=== PATIENT | female | born 1955 | race Caucasian/White ===

== ENCOUNTER → 2017-01-18 | Outpatient (CLI) | payer OTHER ==
--- NOTE | ~2017-01-18 | 2DMMODE ---
[facility]valdo [facility] [employer] [place] [address] 2 D/M-MODE ECHOCARDIOGRAM Name: JOSEPHINE LANDA Room #: REG [facility]#: [id number] Admission: 01/18/17 Attend Phys: Alexx Chadwick MD Discharge: Date of : 55 Date of Service: 01/18/17 1119 Report #: [id number] THIS REPORT FOR: //name// APPROVED REPORT Study performed: 01/18/2017 10:27:02 EXAM: Comprehensive 2D, Doppler, and color-flow Echocardiogram Patient Location: Out-Patient Room #: Echo lab Status: routine Other Information Study Quality: Good Indications Palpitations 2D Dimensions RVDd: 27.41 mm LVEF(%): 55.10 (>50%) IVSd: 7.49 (7-11mm) LVOT Diam: 16.83 (18-24mm) LVDd: 49.89 mm PWd: 9.51 (7-11mm) Ascending Ao: 33.27 (22-36mm) LVDs: 35.55 (25-40mm) Aortic Root: 29.14 mm IVC: 14.00 mm Hoyos's LVEF: 55.10 % Volumes Left Atrial Volume (Systole) Single Plane 4CH: 31.88 mL Single Plane 2CH: 43.24 mL LA ESV Index: 25.00 mL/m2 Aortic Valve AoV Peak Mingo.: 1.32 m/s AO Peak Gr.: 6.95 mmHg LVOT Max P.51 mmHg LVOT Max V: 1.06 m/s CHUCKY Vmax: 1.79 cm2 Mitral Valve E/A Ratio: 0.8 MV Decel. Time: 199.76 ms MV E Max Mingo.: 0.64 m/s MV A Mingo.: 0.76 m/s MV PHT: 57.93 ms IVRT: 138.41 ms [facility] [place] [address] 2 D/M-MODE ECHOCARDIOGRAM Name: JOSEPHINE LANDA PAMELA Room #: REG [facility]#: [id number] Admission: 01/18/17 Attend Phys: Alexx Chadwick MD Discharge: Date of : 55 Date of Service: 01/18/17 1119 Report #: [id number] Pulmonary Valve PV Peak Mingo.: 0.77 m/s PV Peak Gr.: 2.40 mmHg Pulmonary Vein P Vein S: 0.44 m/s P Vein A: 0.26 m/s P Vein D: 0.39 m/s P Vein A Dur.: 115.3 msec P Vein S/D Ratio: 1.13 Tricuspid Valve RAP Estimate: 5.00 mmHg Left Ventricle The left ventricle is normal size. There is normal LV segmental wall motion. There is normal left ventricular wall thickness. The left ventricular systolic function is normal. The left ventricular ejection fraction is within the normal range. LVEF is 50-55%. Grade I - abnormal relaxation pattern. Right Ventricle The right ventricle is normal size. The right ventricular systolic function is normal. Atria The left atrium size is normal. The right atrium size is normal. Aortic Valve The aortic valve is normal in structure. No aortic regurgitation is present. There is no aortic valvular stenosis. Mitral Valve The mitral valve is normal in structure. Trace to mild mitral regurgitation. No evidence of mitral valve stenosis. Tricuspid Valve The tricuspid valve is normal in structure. There is no tricuspid valve stenosis. There is no tricuspid valve regurgitation noted. Pulmonic Valve The pulmonary valve is normal in structure. There is no pulmonic valvular stenosis. Trace pulmonic regurgitation. Great Vessels The aortic root is normal in size. IVC is normal in size and [facility] [address] [place] [address] 2 D/M-MODE ECHOCARDIOGRAM Name: JOSEPHINE LANDA Room #: REG CL [facility]#: [id number] Admission: 01/18/17 Attend Phys: Alexx Chadwick MD Discharge: Date of : 55 Date of Service: 01/18/17 1119 Report #: [id number] collapses >50% with inspiration. Pericardium There is no pericardial effusion. <Conclusion> The left ventricle is normal size. The left ventricular systolic function is normal. Grade I - abnormal relaxation pattern. The right ventricle is normal size. The left atrium size is normal. The aortic valve is normal in structure. Trace to mild mitral regurgitation. There is no pericardial effusion. <ELECTRONICALLY SIGNED> By: Alexx Chadwick MD 01/18/17 1119 1119 111 Alexx Chadwick MD /INF
== END ==
LOC: NUC 07:05
DX: I48.91 Unspecified atrial fibrillation (principal)

== ENCOUNTER → 2017-05-09 | Outpatient (CLI) | payer OTHER ==
[2017-05-09 07:50] LABS: HEMATOCRIT 40.3 % (37.0-47.0); HEMOGLOBIN 13.7 gm/dL (12.0-15.0); MCH 31.9 pg (26.0-34.0); MCHC 34.1 g/dL (28.0-37.0); MCV 93.5 fL (80.0-100.0); RBC 4.31 mil/uL (4.20-5.00); RDW 12.7 % (10.5-14.5); WBC 5.1 thou/uL (4.0-11.0)
[2017-05-09 08:14] LABS: CALCIUM 9.3 mg/dL (8.5-10.1); CREATININE 0.9 mg/dL (0.6-1.0); POTASSIUM 4.3 mmol/L (3.5-5.1)
[2017-05-09 08:20] LABS: ALBUMIN 4.2 g/dL (3.4-5.0); TOTAL BILIRUBIN 0.4 mg/dL (<0.1-1.0); TOTAL PROTEIN 7.6 g/dL (6.4-8.2)
== END ==
LOC: CAT 07:06 → LABMALL 07:54
PROVIDERS: Internal Medicine Cardiovascular Disease
DX: I48.91 Unspecified atrial fibrillation (principal)

== ENCOUNTER 2017-05-18 06:28 | Observation (INO) | payer OTHER ==
[~2017-05-18] VITALS: Ht 162.6 cm; Wt 70.3 kg
--- NOTE | ~2017-05-18 | D ---
[facility] [place] [address] DISCHARGE SUMMARY Name: JOSEPHINE LANDA Room #: 209-P [facility] Fabby MAzael#: [id number] Admission: 05/18/17 Attend Phys: Kermit Davis MD Discharge: 05/19/17 Date of : 55 Report #: [id number] THIS REPORT FOR: //name// CC: Lubna Davis DATE OF SERVICE: 05/19/2017 The patient is a 61-year-old female who is status post a cryoablation by Dr. Davis. There was successful isolation of the left common ostium and the right superior and inferior and right middle vein. She is currently in sinus rhythm. She feels well. She is voicing no complaints or pain, no groin issues. She is up and ambulating. She is currently on Lipitor 20, metoprolol 12.5 b.i.d., flecainide 50 b.i.d., Pradaxa 150 b.i.d. She will be discharged on those medications. No lifting for 48 hours. No lying in tub, Jacuzzi or rudolph for 5 days. She has followup scheduled with Dr. Erickson, who is her primary advertising campaign manager, in June with Dr. Davis in July. If she would have any issues such as palpitation, racing heart or if she perceives that there is recurrence of atrial fibrillation, she is to come to the office for an EKG. DISCHARGE DIAGNOSES: 1. Atrial fibrillation, status post successful cryoablation. 2. History of bradycardia. 3. Degenerative joint disease. Thank you for asking us to assist in the care of this patient. <ELECTRONICALLY SIGNED> By: Ever Briones MD, FACC 05/21/17 1646 1028 1103 Ever Briones MD, FACC /nt
--- NOTE | ~2017-05-18 | P ---
[facility] [place] [address] PROCEDURE REPORT Name: JOSEPHINE LANDA Room #: 209-P [facility] Fabby [place]#: [id number] Admission: 05/18/17 Attend Phys: Kermit Davis MD Discharge: 05/19/17 Date of : 55 Report #: [id number] THIS REPORT FOR: //name// CC: Lubna Davis PROCEDURE: AFib ablation. PREOPERATIVE DIAGNOSIS: Paroxysmal atrial fibrillation. POSTOPERATIVE DIAGNOSIS: Paroxysmal atrial fibrillation. HISTORY OF PRESENT ILLNESS: The patient is a 61-year-old with history of recurrent paroxysmal atrial fibrillation who is here for AFib ablation. ANESTHESIA: The patient underwent general anesthesia with no anesthesia related complications. DESCRIPTION OF PROCEDURE: The patient underwent informed consent where we discussed the details of the procedure including the risks, which include, but not limited to bleeding, vascular damage, cardiac perforation as well as stroke or ND. She understood these risks and is willing to proceed. As such, she was brought to the EP laboratory in a fasting and sedated state and prepped and draped in a sterile fashion. I injected lidocaine to the right groin and obtained access to the right femoral vein times 3. I placed an 8-Argentine, 9-Argentine and 7-Argentine short sheath in the right femoral vein using the modified Seldinger technique. Next, under fluoroscopy, I placed a decapolar catheter and an ICE catheter into the right atrium. I had difficulty placing the decapolar catheter into the coronary sinus. I could not get it to sit into the coronary sinus body. It remained into a ventricular branch of the coronary sinus. Eventually, it fell out and I just left it on the right atrium. I then placed the ICE catheter and again her heart was rotated and this made for difficult visualization of the left atrium for most of the procedure, but I could clearly see the left atrial appendage and there was no clot in this and there was a left common ostium and I could make out the right inferior veins. Next, the patient was systemically heparinized and using an SL1 sheath and a Britt needle, I attempted to perform a transseptal. She did have a nice thin interatrial septum. When I came on with the Britt needle, it did not the left atrium as usual, but I was able to advance the dilator slightly into the left atrium and placed a guidewire into the left common vein. However, as I tried to advance the sheath, it would not cross over into the left atrium. My transseptal puncture was somewhat low, so I decided to pull back and repeat another transseptal at a slightly more mid location on the interatrial septum. Again, using the Britt needle and SL1, I was able to pop the dilator into the left atrium and then placed a wire deep into the left common ostium, but despite pushing and turning, I could not advance the sheath. Therefore, I pulled the [facility] [address] [place] [address] PROCEDURE REPORT Name: JOSEPHINE LANDA Room #: 209-P [facility] Hill#: [id number] Admission: 05/18/17 Attend Phys: Kermit Davis MD Discharge: 05/19/17 Date of : 55 Report #: [id number] SL1 sheath out and left the wire in the left atrium and then attempted to dilate with the cryo sheath. After I was not able to cross directly with the cryo sheath, but after removing the cryo sheath, I was able to advance the SL1 sheath up into the left superior pulmonary vein. Next, I performed a detailed 3D geometry of the left atrium using a Lasso catheter. I was able to perform baseline measurements of the left common ostium, the right superior pulmonary vein, and the right inferior pulmonary vein. Next, I reattempted to cross the interatrial septum with the cryo sheath. However, this was unsuccessful once again. I attempted to move my wire into the upper portion of the left common ostium to see if this would give me some more support. However, I still could not advance. Therefore, once again, I placed the SL1 sheath into the left atrium and guided the wire into the superior aspect of the vessel. Using a second SL1 sheath, I was finally able to cross the interatrial septum. This was a very challenging transseptal that took approximately an hour and 10 minutes. Once we crossed into the left atrium, the procedure was straightforward. I performed a total of 3 freezes in the left common ostium. The vein isolated during the second freeze and there was evidence of entrance and exit block. I then placed my into the left inferior aspect of the common ostium and performed an additional freeze to ensure that we would not get reconnection on the inferior aspect of this common vessel. Temps while freezing in the common ostium were around -50 degrees. Again, there was evidence of entrance and exit block in both branches of the common ostium. Next, I turned my attention to the right-sided vessels and while freezing these vessels, I performed phrenic nerve pacing from the decapolar, which was placed at the subclavian vein. Of note, there was a middle cardiac vein on the right side. While I was isolating the right superior pulmonary vein, I also isolated the middle vein. I did 2 freezes in this vein and it was isolated. I then turned my attention to the right inferior pulmonary vein and while freezing this vein, the balloon also occluded the middle cardiac vein. I did 2 freezes in the right veins as well and there was evidence of isolation after 2 freezes. The veins were reinterrogated and found to have been isolated, as such the procedure was concluded. Preablation, the patient was in sinus rhythm with a sinus cycle length of 935 milliseconds, LA interval 160 milliseconds, QRS duration 75 milliseconds, QT interval 423 milliseconds. Post-ablation, she remained in sinus rhythm with a sinus cycle length of 780 milliseconds, LA interval 150 milliseconds, QRS duration 75 milliseconds with QT interval 440 milliseconds. Using intracardiac ultrasound, I verified that there was no pericardial effusion. The patient was then given systemic protamine and once the ACT was within acceptable range, all catheters and sheaths were pulled and hemostasis was obtained. The patient awoke neurologically and hemodynamically intact with no complications. CONCLUSIONS: 1. Successful AFib ablation with isolation of the left common ostium, the right superior, right middle, and right inferior pulmonary veins. [facility] [address] [place] [address] PROCEDURE REPORT Name: JOSEPHINE LANDA Room #: 209-P [facility] Fabby MJessicaRJessica#: [id number] Admission: 05/18/17 Attend Phys: Kermit Davis MD Discharge: 05/19/17 Date of : 55 Report #: [id number] 2. Difficult transseptal procedure taking 1 hour due to interatrial septum fibrosis. <ELECTRONICALLY SIGNED> By: Kermit Davis MD 05/21/17 1600 1246 1451 Kermit Davis MD /nt
[2017-05-18] MEDS ORDERED: LIPITOR 20 MG T20 M1 PO (06:50)
[2017-05-18] MEDS ORDERED: PRADAXA150 MG PO (06:50)
[2017-05-18] MEDS ORDERED: PROLIA60 MG/1 ML IM (06:51)
[2017-05-18] MEDS ORDERED: ASPIRIN325 PO (06:53)
[2017-05-18] MEDS ORDERED: TOPROL XL25 MG PO (06:53)
[2017-05-18] MEDS ORDERED: FLECAINIDE ACET50 M1 PO (06:53)
[2017-05-18] MEDS ORDERED: FLUOCINOLONE AC15 GM TOP (06:54)
[2017-05-18] MEDS ORDERED: VALACYCLOVIR500 MG PO (06:55)
[2017-05-18] MEDS ORDERED: CALCIUM 500 +1 EAC5 PO (06:55)
[2017-05-18] MEDS ORDERED: CENTRUM SILVER1 EAC4 PO (06:55)
[2017-05-18 07:03] VITALS: BP 133/85
[2017-05-18 07:06] LABS: BASOPHILS 0.7 % (0.0-2.0); EOSINOPHILS 1.8 % (0.0-3.0); HEMATOCRIT 38.6 % (37.0-47.0); HEMOGLOBIN 13.4 gm/dL (12.0-15.0); LYMPHOCYTES 24.2 % (24.0-44.0); MCH 32.2 pg (26.0-34.0); MCHC 34.8 g/dL (28.0-37.0); MCV 92.8 fL (80.0-100.0); MONOCYTES 9.1 % (1.0-8.0); PLATELET COUNT 184 thou/uL (150-400); POLYS 64.2 % (36.0-66.0); RBC 4.16 mil/uL (4.20-5.00); RDW 12.8 % (10.5-14.5); WBC 4.7 thou/uL (4.0-11.0)
[2017-05-18 07:09] LABS: MANUAL DIFF NO
[2017-05-18 07:13] LABS: CALCIUM 8.7 mg/dL (8.5-10.1); CREATININE 0.8 mg/dL (0.6-1.0); POTASSIUM 3.8 mmol/L (3.5-5.1)
[2017-05-18 07:20] LABS: ALBUMIN 4.1 g/dL (3.4-5.0); APTT 31.7 Seconds (24.5-32.8); PROTIME 10.5 Seconds (9.3-11.4); TOTAL BILIRUBIN 0.6 mg/dL (<0.1-1.0); TOTAL PROTEIN 7.2 g/dL (6.4-8.2)
[2017-05-18 14:01] VITALS: BP 146/91
[2017-05-18 14:10] VITALS: BP 137/95
[2017-05-18 14:30] VITALS: BP 139/93
[2017-05-18 16:45] VITALS: BP 129/82
[2017-05-18 19:57] VITALS: BP 125/72
[2017-05-19] VITALS: BP 119/67
[2017-05-19 03:40] VITALS: BP 127/82
[2017-05-19 08:45] VITALS: BP 126/82
[2017-05-19 11:12] VITALS: BP 126/82
== END 2017-05-19 11:56 | disposition home or self-care (01) ==
LOC: CATH 06:28 → 2N 06:46 → CATH 07:52 → 2N 14:00
PROVIDERS: Internal Medicine Cardiovascular Disease
DX: I48.0 Paroxysmal atrial fibrillation (principal); M19.90 Unspecified osteoarthritis, unspecified site
CPT/HCPCS: 62110; 62900; 65020; 65040; 70005

== ENCOUNTER → 2018-12-02 | Outpatient (CLI) | payer OTHER ==
[~2018-12-02] MED LIST: ASPIRIN325 PO; CALCIUM 500 +1 EAC5 PO; CENTRUM SILVER1 EAC4 PO; FLECAINIDE ACET50 M1 PO; FLUOCINOLONE AC15 GM TOP; LIPITOR 20 MG T20 M1 PO; PRADAXA150 MG PO; PROLIA60 MG/1 ML IM; TOPROL XL25 MG PO; VALACYCLOVIR500 MG PO
--- NOTE | 2018-12-02 11:47 | EXE ---
[facility] [place] [address] STRESS ECHOCARDIOGRAM Name: JOSEPHINE LANDA [id number] ������������� Admission: 12/02/18 ������������� Attend Phys: Kermit Davis Discharge: ��� ������������� ��� Date of : 55 Date of Service: 12/02/18 1147 �� Report #: [id number] �������� ��������������������������������������������[id number] THIS REPORT FOR: //name// APPROVED REPORT Study performed: 12/02/2018 10:37:02 Exam: Stress Echocardiogram Indication: Chest pain Patient Location: Out-Patient Stress Nurse: Barbara Vasquez RN Status: routine Ht: 5 ft 4 in HR: 57 bpm BP: 124/84 mmHg Rhythm: NSR Medical History Medical History: Atrial Fibrillation/Ablation Allergies: No known drug allergies Cardiac Risk Factors: Hyperlipidemia Procedure The patient underwent an Exercise Stress Test using the Kwasi Protocol. Blood pressure, heart rate, and EKG were monitored. An Echocardiogram was performed by communications engineering technician in four stages in quad fashion. At peak stress, four selected images were obtained and placed side by side with resting images for comparison. Stress Test Details Stress Test: Exercise stress testing was performed using a Kwasi protocol. HR Resting HR: 57 bpm Max Heart Rate (APMHR): 157 bpm Max HR Achieved: 171 bpm Target HR (85% APMHR): 133 bpm % of APMHR: 108 Recovery HR: 83 bpm HR response to stress: Normal HR response to stress BP Resting BP: 124/84 mmHg Max BP: 172/90 mmHg Recovery BP: 146/84 mmHg BP response to stress: Normal blood pressure response to stress. [facility] [address] [place] [address] STRESS ECHOCARDIOGRAM Name: JOSEPHINE LANDA Room #: REG CL Liz#: [id number] ������������� Admission: 12/02/18 ������������� Attend Phys: [facility] Discharge: ��� ������������� ��� Date of : 55 Date of Service: 12/02/18 1147 �� Report #: [id number] �������� ��������������������������������������������[id number] ECG Clinical Reason for Termination: Completed protocol Stress Symptoms: none Exercise duration: 8 min 0 sec Highest Stage Achieved: Stage 3: 3.4 mph at 14% grade. Exercise capacity: 10.10 METs Pre-Stress Echo The resting Echocardiogram showed normal left ventricular contractility with an estimated Ejection Fraction of about 55%. No significant valvular abnormalities noted. Post-Stress Echo The stress Echocardiogram showed normal left ventricular contractility with an estimated Ejection Fraction of about 60-65%. Conclusion Clinical Response: Non-ischemic Exercise Capacity: Average Stress ECG Response: Non-ischemic Stress Echo Images: Non-ischemic Other Information Study Quality: Adequate ��������������������������������������������� <ELECTRONICALLY SIGNED> ���������������������������������������� By: Ever Briones MD, [facility] ��������������������������������������������� 12/02/18 1147 1147 1147 Ever Briones MD, FACC /INF
== END ==
LOC: CV 09:41
DX: R07.9 Chest pain, unspecified (principal); I48.91 Unspecified atrial fibrillation; E78.5 Hyperlipidemia, unspecified

== ENCOUNTER → 2018-12-02 | Outpatient (CLI) | payer OTHER | LOC: CAT 09:58 | DX: Z13.6 Encounter for screening for cardiovascular disorders (principal); E78.00 Pure hypercholesterolemia, unspecified; I25.10 Atherosclerotic heart disease of native coronary artery without angina pectoris ==

== ENCOUNTER → 2021-02-08 | Outpatient (CLI) | payer OTHER | LOC: SJCVCIMAG 08:07 | PROVIDERS: ATTEND Internal Medicine Cardiovascular Disease | DX: I07.1 Rheumatic tricuspid insufficiency (principal); R94.31 Abnormal electrocardiogram [ECG] [EKG]; R00.1 Bradycardia, unspecified; I48.91 Unspecified atrial fibrillation; E78.00 Pure hypercholesterolemia, unspecified; I48.0 Paroxysmal atrial fibrillation; M81.0 Age-related osteoporosis without current pathological fracture; Z98.890 Other specified postprocedural states; Z79.82 Long term (current) use of aspirin; Z79.899 Other long term (current) drug therapy; Z82.49 Family history of ischemic heart disease and other diseases of the circulatory system ==